=== PATIENT | female | born 1990 | race Caucasian/White ===

== ENCOUNTER 2018-01-07 21:44 | Emergency (ER) | payer BC ==
[~2018-01-07] VITALS: Ht 167.6 cm; Wt 59.0 kg
[~2018-01-07 21:44] MED LIST: ATEN25 PO; FLUO20 PO; IBUP800 PO; MECL12.5 PO; MEDR150I IM; NAPR500 PO; OXYACE5T PO; PROP10 PO; [UNRECOGNIZED DRUG - OTHER] PO
[2018-01-07] MEDS ORDERED: METO25ER PO (22:54)
[2018-01-07 23:16] LABS: BASOPHILS ABSOLUTE AUTO 0.02 K/mm3 (0.00-0.23); BASOPHILS PERCENT AUTO 0 % (0-2); EOSINOPHILS ABSOLUTE AUTO 0.11 K/mm3 (0.00-0.68); EOSINOPHILS PERCENT AUTO 2 % (0-6); Hematocrit 40.2 % (33.0-51.0); Hemoglobin 13.4 g/dL (11.5-16.0); IMMATURE GRAN ABSOLUTE AUTO 0.01 K/mm3 (0.00-0.10); IMMATURE GRAN PERCENT AUTO 0 % (0-1); LYMPHOCYTES ABSOLUTE AUTO 2.63 K/mm3 (0.84-5.20); LYMPHOCYTES PERCENT AUTO 40 % (21-46); MONOCYTES ABSOLUTE AUTO 0.45 K/mm3 (0.16-1.47); MONOCYTES PERCENT AUTO 7 % (4-13); Mean Corpuscular HGB Conc 33.3 g/dL (31.5-36.5); Mean Corpuscular Volume 93 fL (80-100); Mean Platelet Volume 9.6 fL (9.1-12.4); NEUTROPHILS ABSOLUTE AUTO 3.31 K/mm3 (1.96-9.15); NEUTROPHILS PERCENT AUTO 51 % (41-73); Platelet Count 199 K/mm3 (150-400); RDW Coefficient Variation 11.6 % (11.7-14.2); RDW Standard Deviation 40.3 fL (35.1-46.3); Red Blood Cell Count 4.32 M/mm3 (3.80-5.20); White Blood Cell Count 6.53 K/mm3 (4.00-11.30)
[2018-01-07 23:36] LABS: Alanine Aminotransfer (ALT/SGP 23 U/L (12-78); Albumin/Globulin Ratio 1.1 (0.8-1.8); Alk Phos 59 U/L (50-136); Anion Gap 7 mmol/L (6-16); Aspartate Aminotrans (AST/SGOT 17 U/L (12-37); Bilirubin, Total 0.3 mg/dL (0.1-1.0); Blood Urea Nitrogen 10 mg/dL (8-24); Bun/Creatinine Ratio 15.4 (12.0-20.0); CO2, Blood 29 mmol/L (21-32); Calcium, Blood 8.9 mg/dL (8.5-10.1); Chloride, Blood 107 mmol/L (98-108); Creatinine, Blood 0.65 mg/dL (0.40-1.00); Globulin, Blood 3.6 g/dL (2.2-4.0); Glomerular Filtration Rate >60 (60-); Glucose, Blood 88 mg/dL (70-99); Potassium, Blood 3.5 mmol/L (3.5-5.5); Sodium, Blood 143 mmol/L (136-145); Total Protein, Blood 7.6 g/dL (6.4-8.2); Troponin I <0.015 ng/mL (0.000-0.040)
== END 2018-01-08 01:51 | disposition home or self-care (01) ==
LOC: ER 21:44
PROVIDERS: Emergency Medicine
DX: R42 Dizziness and giddiness (principal); R00.0 Tachycardia, unspecified; Z88.5 Allergy status to narcotic agent; Z79.899 Other long term (current) drug therapy
CPT/HCPCS: 36415; 71046; 80053; 81025; 84484; 85025; 93005; 93010; 96360; 99284; J7030

== ENCOUNTER 2019-04-08 00:04 | Day surgery (SDC) | payer BC ==
[~2019-04-08 00:04] MED LIST changes: +METO25ER PO
[2019-04-08] MEDS ORDERED: PROM25 (10:46)
[2019-04-08] MEDS ORDERED: Verotin-Gr Cap1 EACH PO (10:47)
[2019-04-08] MEDS ORDERED: VITAMIN C500 MG PO (10:47)
[2019-04-08] MEDS ORDERED: Meribin5 MG (10:48)
[2019-04-08] MEDS ORDERED: VITAMIN D31000 UNIT PO (10:48)
== END 2019-04-08 12:20 | disposition home or self-care (01) ==
LOC: ATC 00:04
DX: O21.1 Hyperemesis gravidarum with metabolic disturbance (principal)
CPT/HCPCS: 96361; 96374; J2405; J7030; J7120

== ENCOUNTER 2019-04-10 00:40 | Day surgery (SDC) | payer BC ==
[~2019-04-10 00:40] MED LIST changes: +Meribin5 MG; +PROM25; +VITAMIN C500 MG PO; +VITAMIN D31000 UNIT PO; +Verotin-Gr Cap1 EACH PO
--- NOTE | 2019-04-13 18:43 | NUR ---
STOP TIME: IV FLUIDS STOPED AT 1830 04/10/19
== END 2019-04-10 18:30 | disposition home or self-care (01) ==
LOC: ATC 00:40
DX: O21.1 Hyperemesis gravidarum with metabolic disturbance (principal)
CPT/HCPCS: 96361; 96374; J2405; J7120

== ENCOUNTER 2019-04-13 00:29 | Day surgery (SDC) | payer BC | END 2019-04-13 16:57 | disposition home or self-care (01) | LOC: ATC 00:29 | DX: O21.9 Vomiting of pregnancy, unspecified (principal); Z3A.10 10 weeks gestation of pregnancy; Z88.5 Allergy status to narcotic agent | CPT/HCPCS: 96360; 96361; 96374; J2405; J7120 ==

== ENCOUNTER 2019-04-20 14:12 | Day surgery (SDC) | payer BC | END 2019-04-20 17:05 | disposition home or self-care (01) | LOC: ATC 14:12 | DX: O21.1 Hyperemesis gravidarum with metabolic disturbance (principal); Z79.899 Other long term (current) drug therapy; Z88.5 Allergy status to narcotic agent; Z36.89 Encounter for other specified antenatal screening | CPT/HCPCS: 96360; 96361; 96374; J2405; J7120 ==

== ENCOUNTER 2019-05-01 02:06 | Day surgery (SDC) | payer BC ==
[2019-05-01] MEDS ORDERED: ONDA4 IV (16:18)
[2019-05-01] MEDS ORDERED: Lactated Ringe500 M1 (16:20)
== END 2019-05-01 23:16 | disposition home or self-care (01) ==
LOC: ATC 02:06
DX: O21.1 Hyperemesis gravidarum with metabolic disturbance (principal)
CPT/HCPCS: 96361; 96374; J2405; J7120

== ENCOUNTER 2019-05-08 00:24 | Day surgery (SDC) | payer BC ==
[~2019-05-08 00:24] MED LIST changes: +Lactated Ringe500 M1; +ONDA4 IV
== END 2019-05-08 17:02 | disposition home or self-care (01) ==
LOC: ATC 00:24
DX: O21.1 Hyperemesis gravidarum with metabolic disturbance (principal); Z79.899 Other long term (current) drug therapy; Z88.1 Allergy status to other antibiotic agents
CPT/HCPCS: 96360; 96361; 96374; J2405; J7120

== ENCOUNTER 2019-11-11 19:56 | Inpatient (IN) | payer BC ==
[~2019-11-11] VITALS: Ht 167.6 cm; Wt 74.5 kg
[2019-11-11 20:46] LABS: BASOPHILS ABSOLUTE AUTO 0.01 K/mm3 (0.00-0.23); BASOPHILS PERCENT AUTO 0 % (0-2); EOSINOPHILS ABSOLUTE AUTO 0.08 K/mm3 (0.00-0.68); EOSINOPHILS PERCENT AUTO 1 % (0-6); Hematocrit 36.8 % (33.0-51.0); Hemoglobin 12.5 g/dL (11.5-16.0); IMMATURE GRAN ABSOLUTE AUTO 0.04 K/mm3 (0.00-0.10); IMMATURE GRAN PERCENT AUTO 1 % (0-1); LYMPHOCYTES ABSOLUTE AUTO 1.94 K/mm3 (0.84-5.20); LYMPHOCYTES PERCENT AUTO 23 % (21-46); MONOCYTES ABSOLUTE AUTO 0.74 K/mm3 (0.16-1.47); MONOCYTES PERCENT AUTO 9 % (4-13); Mean Corpuscular HGB 31.3 pg (26.0-34.0); Mean Corpuscular Volume 92 fL (80-100); Mean Platelet Volume 9.8 fL (9.1-12.4); NEUTROPHILS ABSOLUTE AUTO 5.47 K/mm3 (1.96-9.15); NEUTROPHILS PERCENT AUTO 66 % (41-73); Platelet Count 229 K/mm3 (150-400); RDW Coefficient Variation 13.2 % (11.7-14.2); RDW Standard Deviation 44.3 fL (35.1-46.3); Red Blood Cell Count 3.99 M/mm3 (3.80-5.20); White Blood Cell Count 8.28 K/mm3 (4.00-11.30)
--- NOTE | 2019-11-12 09:16 | NUR ---
PT HERE FOR SOCIAL INDUCTION, SLIME AT SIDE, SUPPORTIVE. PLANNING EPIDURAL, REQUESTING SOME FENTANYL. PLANS TO [facility]. WANTS TO AVOID PITOCIN AT THIS TIME. NOLAN CNM COVERING FOR FOR A FEW HOURS. 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
--- NOTE | 2019-11-12 15:04 | NUR ---
REPORT TO TIANA ALFARO.
--- NOTE | 2019-11-12 21:15 | NUR ---
fresh ice water
[2019-11-13 06:15] LABS: Hematocrit 35.5 % (33.0-51.0); Hemoglobin 11.8 g/dL (11.5-16.0); Mean Corpuscular HGB 31.4 pg (26.0-34.0); Mean Corpuscular HGB Conc 33.2 g/dL (31.5-36.5); Mean Corpuscular Volume 94 fL (80-100); Mean Platelet Volume 10.1 fL (9.1-12.4); Platelet Count 211 K/mm3 (150-400); RDW Coefficient Variation 13.3 % (11.7-14.2); RDW Standard Deviation 45.7 fL (35.1-46.3); Red Blood Cell Count 3.76 M/mm3 (3.80-5.20); White Blood Cell Count 11.46 K/mm3 (4.00-11.30)
--- NOTE | 2019-11-13 13:35 | NUR ---
No acute changes t/o shift. ID bands matched w/nb and verification form. Denies additional questions or concerns. Pt d/c'd home ambulatory to care of .
--- NOTE | 2019-11-13 16:46 | NUR ---
RN ROUNDED ON MOM AND NB X2 FOR [facility] EDUCATION/ASSISTANCE. NIPPLE FLAT, SHIELD USED, NB LATCHED WELL WITH SHIELD. RN INSTRUCT/DEMO MOM ABOUT CORRECT LATCH AND POSITION, SKIN TO SKIN, HOW TO USE SHIELD TO ERECT NIPPLES. MOM VERBALIZED UNDERSTANDING. MOM HAS PREVIOUS EXPERIENCE [id number]. INSTRUCTED MOM ABOUT FEEDING DURING THE FIRST WEEK, NURSING BOOK/INSTRUCTIONS REVIEWED WITH MOM. MOM VERBALIZED UNDERSTANDING AND DENIES ANY FURTHER QUESTIONS OR CONCERNS.
== END 2019-11-13 13:35 | disposition home or self-care (01) | DRG 807 ==
LOC: OBS 19:56 → BC 19:57 → OBS 20:02 → BC 20:03
PROVIDERS: ADMIT Obstetrics & Gynecology
PROC: 3E0P7VZ Introduction of Hormone into Female Reproductive, Via Natural or Artificial Opening (ICD-10-PCS; 2019-11-11)
PROC: 10E0XZZ Delivery of Products of Conception, External Approach (ICD-10-PCS; principal; 2019-11-12)
PROC: 10907ZC Drainage of Amniotic Fluid, Therapeutic from Products of Conception, Via Natural or Artificial Opening (ICD-10-PCS; 2019-11-12)
PROC: 3E0R3BZ Introduction of Anesthetic Agent into Spinal Canal, Percutaneous Approach (ICD-10-PCS; 2019-11-12)
DX: O48.0 Post-term pregnancy (principal); Z37.0 Single live birth; O69.81X0 Labor and delivery complicated by cord around neck, without compression, not applicable or unspecified; O76 Abnormality in fetal heart rate and rhythm complicating labor and delivery; Z3A.41 41 weeks gestation of pregnancy
CPT/HCPCS: 36415; 51702; 85025; 85027; 86850; 86900; 86901; J1885; J2001; J2210; J2405; J2590; J3010; J7120

== ENCOUNTER → 2020-08-02 | Outpatient (CLI) | payer BC | END | disposition home or self-care (01) | LOC: PLD 11:30 → LAB SHORT 11:30 | DX: D22.5 Melanocytic nevi of trunk (principal) | CPT/HCPCS: 88305 ==

== ENCOUNTER → 2021-09-16 | Outpatient (CLI) | payer BC | END | disposition home or self-care (01) | LOC: LAB SHORT 11:15 | DX: R30.0 Dysuria (principal) | CPT/HCPCS: 87077; 87086; 87186 ==

== ENCOUNTER 2023-11-27 19:17 | Emergency (ER) | payer BC ==
[~2023-11-27] VITALS: Ht 167.6 cm; Wt 61.2 kg
[2023-11-27 19:27] VITALS: BP 143/94
== END 2023-11-27 22:08 | disposition home or self-care (01) ==
LOC: ER 19:17
DX: S29.012A Strain of muscle and tendon of back wall of thorax, initial encounter (principal); G58.9 Mononeuropathy, unspecified; X58.XXXA Exposure to other specified factors, initial encounter; Z88.5 Allergy status to narcotic agent; Z79.899 Other long term (current) drug therapy
CPT/HCPCS: 93005; 93010; 99284-25

== ENCOUNTER → 2025-03-30 | Outpatient (CLI) | payer BC | LOC: LAB SHORT 16:12 | DX: L08.0 Pyoderma (principal) | CPT/HCPCS: 87070; 87077; 87147; 87186; 87205 ==